=== PATIENT | female | born 1990 | race Hispanic/Latino ===

== ENCOUNTER 2019-12-11 18:38 | Observation (INO) | payer BC, MEDICAID ==
[~2019-12-11] VITALS: Ht 157.5 cm; Wt 87.5 kg
[~2019-12-11 18:38] MED LIST: AcetaZOLAMIDE 250 MG TAB PO SCH
[2019-12-11 19:35] LABS: APPEARANCE,URINE Clear (CLEAR); BILIRUBIN,URINE Negative (NEGATIVE); COLOR,URINE Yellow (YELLOW); GLUCOSE, URINE (UA) Negative (NEGATIVE); KETONES,URINE Negative (NEGATIVE); LEUKOCYTE ESTERASE ,URINE Negative (NEGATIVE); NITRATE,URINE Negative (NEGATIVE); OCCULT BLOOD,URINE Moderate (NEGATIVE); PROTEIN,URINE Trace mg/dL (NEGATIVE)
[2019-12-11 19:38] LABS: HCG,QUAL RESULT NEGATIVE (NEGATIVE)
[2019-12-11 19:43] LABS: BACTERIA,URINE Rare /HPF (None Seen); MUCUS,URINE Few LPF (None Seen); SQUAMOUS EPITHELIAL CELL,UR Few /HPF (0-2); WBC,URINE 0-1 /HPF (0-1)
[2019-12-11 19:53] LABS: BASOPHILS % (AUTO) 0.4 % (0.0-5.0); EOSINOPHILS % (AUTO) 0.9 % (0.0-8.0); HEMATOCRIT 39.6 % (36-48); LYMPHOCYTES % (AUTO) 30.2 % (21.0-51.0); MEAN CORPUSCULAR HGB CONC 33.3 g/dL (32.0-36.0); MONOCYTES % (AUTO) 4.9 % (3.0-13.0); NEUTROPHILS % (AUTO) 63.2 % (40.0-77.0); PLATELET COUNT (AUTO) 291 K/uL (130-400); RED BLOOD CELL COUNT(AUTO) 4.55 MIL/uL (4.00-5.50); RED CELL DISTRIBUTION WIDTH 12.7 % (11.0-15.5); WHITE BLOOD COUNT (AUTO) 8.1 K/uL (4.8-10.8)
[2019-12-11 20:01] LABS: CREATININE 0.9 mg/dL (0.5-1.5); POTASSIUM 3.5 mmol/L (3.5-5.1)
[2019-12-11 20:06] LABS: ALBUMIN 3.9 g/dL (3.5-5.0); BILIRUBIN,TOTAL 0.4 mg/dL (0.2-1.0); TOTAL PROTEIN, SERUM 7.6 g/dL (6.0-8.3)
[2019-12-11] MEDS ORDERED: LIDOCAINE HCL 1% 20 ML VIAL ONE (20:51)
[2019-12-11 22:06] LABS: GLUCOSE, CSF 67 mg/dL (40-70); TOTAL PROTEIN, CSF 27 mg/dL (15-45)
[2019-12-11] MEDS ORDERED: AcetaZOLAMIDE 250 MG TAB ONE (22:10)
[2019-12-11 22:18] LABS: APPEARANCE,CSF CLEAR (CLEAR); COLOR,CSF COLORLESS (COLORLESS); CSF TOTAL VOLUME 3.5 mL; CSF TUBE NUMBER 1; RED BLOOD CELL1,CSF 5 CMM (0-0); WHITE BLOOD CELL1,CSF 0 CMM (0-5)
[2019-12-11 22:27] LABS: APPEARANCE2,CSF CLEAR (CLEAR); COLOR2,CSF COLORLESS (COLORLESS); CSF 2ND TUBE NUMBER TUBE NO.4
[2019-12-11 23:30] VITALS: BP 106/61
--- NOTE | 2019-12-11 23:45 | NUR ---
ADMIT PT ADMITTED TO ROOM 304, AAOX3. NO COMPLAINTS VERBALIZED. ADMISSION CARE DONE. ADMISSION DATA BASE COMPLETED. IN FOR MORE CARE AND MANAGEMENT. Addendum: 12/12/19 at 0052 by CHAU WALSH RN RN Amended: Links added.
--- NOTE | 2019-12-12 02:00 | NUR ---
ROUNDS PT RESTING WELL, FAIRLY ASLEEP. NO DISTRESS NOTED. KEPT RESTED AND COMFORTABLE. CALL LIGHT WITHIN REACH. WILL MONITOR PT.
[2019-12-12 04:29] VITALS: BP 109/57
[2019-12-12 05:01] LABS: HEMATOCRIT 42.6 % (36-48); MEAN CORPUSCULAR HEMOGLOBIN 28.1 pg (27.0-33.0); MEAN CORPUSCULAR HGB CONC 31.2 g/dL (32.0-36.0); MEAN CORPUSCULAR VOLUME 89.9 fL (79-99); RED BLOOD CELL COUNT(AUTO) 4.74 MIL/uL (4.00-5.50); RED CELL DISTRIBUTION WIDTH 12.6 % (11.0-15.5); WHITE BLOOD COUNT (AUTO) 7.2 K/uL (4.8-10.8)
[2019-12-12 05:15] LABS: CREATININE 0.8 mg/dL (0.5-1.5); MAGNESIUM 2.1 mg/dL (1.80-2.40)
--- NOTE | 2019-12-12 06:10 | NUR ---
MD DR DIETRICH IN TO SEE PT. NO DISTRESS NOTED. NO COMPLAINTS VERBALIZED. NEW ORDERS GIVEN, PLEASE REFER TO CPOE. PT FOR D/C ONCE CLEARED BY CONSULTS. PRESCRIPTION FOR DIAMOX IN CHART. FOR MORE CARE.
[2019-12-12 07:52] VITALS: BP 112/75
[2019-12-12] MEDS ORDERED: ACETAMINOPHEN 325 MG TAB PO PRN (09:15)
[2019-12-12 11:22] VITALS: BP 102/56
[2019-12-12 16:00] VITALS: BP 102/64
--- NOTE | 2019-12-12 17:20 | NUR ---
Discharge instructions, prescribed medications and follow up appointments reviewed with patient. PRescription for Diamox given to patient and instructed to start taking right away. Patient verbalized understanding. PIV to RAC removed, bleeding controlled and dressing applied. Patient escorted by wheelchair to emergency entrance where family received to drive home.
--- NOTE | 2019-12-13 08:33 | NUR ---
CM NOTES PATIENT LEFT BEFORE CM DETAILED ASSESSMENT. NO CONCERNS VOICED BY RN OR PATIENT Addendum: 12/13/19 at 0834 by TEGAN COX RN CM Amended: Links added.
== END 2019-12-12 17:25 | disposition home or self-care (01) ==
LOC: EDH 18:38 → EDHIP 22:16 → 3AH 23:15
PROVIDERS: ADMIT Family Medicine; ATTEND Family Medicine
DX: H47.10 Unspecified papilledema (principal); H46.9 Unspecified optic neuritis; E78.5 Hyperlipidemia, unspecified; Z72.0 Tobacco use
CPT/HCPCS: 36415 ×2; 70450; 70480; 70540; 70544; 70551; 80048; 80053; 81001; 81025; 82945; 83735; 84157; 85025; 85027; 87071; 87147; 87205; 89051 ×2; 99285; G0378 ×3